=== PATIENT | female | born 1960 | race Caucasian/White ===

== ENCOUNTER 2023-10-22 08:19 | Outpatient (REF) | payer MEDICARE, MEDICAID, SELFPAY ==
--- NOTE | ~2023-10-22 | XR_ITS ---
EXAMINATION: XR FOOT, LEFT CLINICAL INFORMATION: Left foot pain, fracture COMPARISON: Radiographs 10/04/2023 TECHNIQUE: AP, lateral, and oblique views of the left foot. FINDINGS: Mild displacement of the distal 5th metatarsal fracture minimally worsened since the previous study. No definite osseous bridging. No additional abnormality. XR/XR foot LT min 3V IMPRESSION: Mild displacement of the distal 5th metatarsal fracture minimally worsened since 10/04/2023.
== END 2023-10-22 08:20 | disposition home or self-care (01) ==
LOC: HO.HOSX 08:19
PROVIDERS: Visit Provider Physician Assistant
DX: M79.672 Pain in left foot (principal)
CPT/HCPCS: 73630

== ENCOUNTER 2023-10-22 08:47 | Outpatient (AMB) | payer MEDICARE, MEDICAID, SELFPAY ==
--- NOTE | 2023-10-22 08:50 | MHC.OFFVIS ---
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 Patient reports around the end of September she was jumping around with her niece when she rolled her ankle and heard a pop. She had pain swelling and bruising, she presented to [facility] where she was placed in a walking boot. States that she discontinued use of boot due to discomfort. Currently with walking she will sharp pain at the lateral aspect of foot near her small toe. Allergies cashew nut Allergy (Verified 10/22/23 09:05) lips swelling, difficulty breathing Medication List - Last Reconciled 10/22/23 by Shannon Cleveland PA-C No Known Home Meds HPI HPI MAINTENANCE REPRESENTATIVE-Left foot sprain/pain: Details: 63-year-old female who presents to the office today for an evaluation of left foot injury. She reports she was jumping around with her niece when she rolled her ankle and heard a pop, 10/04/23. She was seen at [facility] where x-rays were performed and she was placed in a walking boot. She has discontinued using her boot due to discomfort. She currently states she has sharp pain at the lateral aspect of her foot near her small toe. She has a history of right foot fracture in 2019. [facility] Social History (Updated 10/22/23 @ 09:06 by Rayne Albarran Cha) Patient Tobacco Use Status: Former Tobacco user Current occupational status: retired Review of Systems Const All systems reviewed & are unremarkable except as noted in HPI and below Physical Exam Vital Signs: BMI result Body Mass Index 17.4 Const General: cooperative, healthy appearing, comfortable, no acute distress, well developed and alert Orientation/consciousness: patient oriented x3 HEENT Head: Yes normal to inspection, Yes normocephalic and Yes atraumatic Eyes General: appearance normal, both eyes and all related structures Resp Effort & Inspection: normal respiratory effort and able to speak in complete sentences Cardio Rate: regular rate Peripheral pulses: Peripheral pulses 2+ throughout GI Palpation (GI): Soft to palpation Skin Lesions: no lesions Rashes: no rashes Neuro General: patient oriented x3 Extrem Other: Left foot: Skin intact.? There is some bruising of the lateral edge of the left foot.? There is tenderness at the base of the 5th metatarsal. Sensation intact.? EHL intact.? No pain along the mediolateral malleolus.? Neurovascularly intact.?? Office Procedures Fracture Care Fracture Billing Code: Fracture Billing Code Results Reviewed Results Reviewed: Xrays were obtained in the office today and personally reviewed by me of the left foot show 5th metatarsal fracture Assessment & Plan Assessment & Plan (1) Fracture of 5th metatarsal: Code(s): S92.353A - Displaced fracture of fifth metatarsal bone, unspecified foot, initial encounter for closed fracture Category: Medical Plan She was given a postop shoe which she will wear weight bearing as tolerated. She will use caution on uneven surfaces. Over the next 6 weeks I would expect she may have fluctuation in pain and swelling with activities and she can try wearing regular street shoe when her symptoms subside. I would like to see her back in 6-8 weeks, sooner if needed. Orders: Orders XR foot LT min 3V 10/22/23 M79.672 - Pain in left foot Patient Instructions: Scribed for Shannon Cleveland PA-C, by Segun Swenson medical anthropology director, on 10/22/2023 at 9:00 AM EST.? I, Shannon Cleveland PA-C, have personally reviewed and agree with the information entered by the scribe. Coding Level of Care Code New Pt Level 3 (53492) Diagnoses Fracture of 5th metatarsal S92.353A CPT Codes Fracture Care - Fracture Billing Code: Fracture Billing Code ([id number])
[2023-10-22 09:05] VITALS: BMI 17.4
== END 2023-10-22 09:55 | disposition home or self-care (01) ==
PROVIDERS: PCP Internal Medicine; Visit Provider Physician Assistant
DX: S92.353A Displaced fracture of fifth metatarsal bone, unspecified foot, initial encounter for closed fracture (principal)
CPT/HCPCS: 99203

== ENCOUNTER 2023-12-10 08:32 | Outpatient (REF) | payer MEDICARE, MEDICAID, SELFPAY ==
--- NOTE | ~2023-12-10 | XR_ITS ---
EXAMINATION: XR FOOT, LEFT CLINICAL INFORMATION: Pain. COMPARISON: 10/22/2023. TECHNIQUE: AP, lateral, and oblique views of the left foot. FINDINGS: Redemonstration of mildly displaced fracture along the [id number] shaft of the fifth metatarsal with some interval bridging callus formation. Diffuse demineralization. XR/XR foot LT min 3V IMPRESSION: Redemonstration of mildly displaced fracture along the mid to distal shaft of the fifth metatarsal with some interval bridging callus formation.
== END 2023-12-10 08:33 | disposition home or self-care (01) ==
LOC: HO.HOSX 08:32
PROVIDERS: Visit Provider Physician Assistant
DX: M79.672 Pain in left foot (principal); S92.353A Displaced fracture of fifth metatarsal bone, unspecified foot, initial encounter for closed fracture
CPT/HCPCS: 73630; 99212

== ENCOUNTER 2023-12-10 09:38 | Outpatient (AMB) | payer MEDICARE, MEDICAID, SELFPAY ==
--- NOTE | 2023-12-10 09:55 | MHC.OFFVIS ---
Vital Signs 12/10/23 09:57 Height 5 ft 1 in Weight 92 lb BMI 17.4 Intake Visit Reasons: OV-F/U left 5th matararsal fx w xrays Intake Note: Dionne a 63 year old female who presents today for a follow up of left 5th metatarsal fx. Patient reports ongoing pain at the base of her toes at the top of her foot as well as intermittent swelling. Allergies cashew nut Allergy (Verified 12/10/23 10:00) lips swelling, difficulty breathing Medication List - Last Reconciled 12/10/23 by Shannon Cleveland PA-C No Known Home Meds HPI HPI OV-F/U left 5th matararsal fx w xrays: Details: Dionne is a 63-year-old female who presents today for a follow-up of left 5th metatarsal fracture. She describes sporadic swelling and persistent pain around the base of her toes near the top of her foot. She reports she has pain while wearing boot. She states that she feels discomfort while walking. [facility] Social History Patient Tobacco Use Status: Former Tobacco user Current occupational status: retired Review of Systems Const All systems reviewed & are unremarkable except as noted in HPI and below Physical Exam Vital Signs: BMI result Body Mass Index 17.4 Const General: cooperative, healthy appearing, comfortable and no acute distress Orientation/consciousness: patient oriented x3 HEENT Head: Yes normal to inspection, Yes normocephalic and Yes atraumatic Eyes General: appearance normal, both eyes and all related structures Neck Neck: Yes normal visual inspection and Yes no JVD Chest Chest palpation & inspection: normal inspection of the chest Resp Effort & Inspection: normal respiratory effort Auscultation: clear to auscultation bilaterally, crackles (no), rales (no), rhonchi (no) and wheezes (no) Cardio Jugular venous distension: no JVD Rate: regular rate Rhythm: regular rhythm Heart sounds: S1 normal heart sound present, S2 normal heart sound present, Murmur heart sound present (no) and Rub heart sound present (no) Peripheral pulses: Peripheral pulses 2+ throughout GI Palpation (GI): Soft to palpation Skin Lesions: no lesions Rashes: no rashes Neuro General: patient oriented x3 Extrem Other: Left foot: Skin intact.?No bruising of the lateral edge of the left foot.? There is mild tenderness at the base of the 5th metatarsal. Sensation intact.? EHL intact.? No pain along the mediolateral malleolus.? Neurovascularly intact.?? General: Yes normal to inspection, Yes no pedal edema and Yes no calf tenderness Psych Appearance: grossly normal Mental Status: mental status grossly normal Speech and movement: Normal speech and movement present Results Reviewed Results Reviewed: Xrays were obtained in the office today and personally reviewed by me of the left foot show 5th metatarsal fracture with interval healing Assessment & Plan Assessment & Plan (1) Fracture of 5th metatarsal: Code(s): S92.353A - Displaced fracture of fifth metatarsal bone, unspecified foot, initial encounter for closed fracture Category: Medical Qualifiers: Encounter type: subsequent encounter Fracture type: closed Fracture healing: with routine healing Plan I discussed the importance of comfortable shoe wear, preferably something with a stiff sole and walking on even surfaces to prevent flare ups. She feels as though her sandals are the most comfortable for for her, given the amount of swelling she is experiencing, it is easier for her to slip on and off. I did explain that she should use anti-inflammatories and icing intermittently to help with her swelling and that over the next 6 weeks. I would expect her to have further healing and less discomfort with ambulation. If there is any questions or concerns, she can contact our office, otherwise follow up as needed. Orders: Orders XR foot LT min 3V Today M79.672 - Pain in left foot Patient Instructions: Scribed for Shannon Cleveland PA-C, by arielle Torres scribe, on 12/10/2023 at 9:45 AM EST. IShannon PA-C, have personally reviewed and agree with the information entered by the scribe. Coding Level of Care Code Global (03159) Diagnoses Fracture of 5th metatarsal S92.353A Encounter type: subsequent encounter Fracture type: closed Fracture healing: with routine healing
[2023-12-10 09:57] VITALS: BMI 17.4
== END 2023-12-10 10:34 | disposition home or self-care (01) ==
PROVIDERS: PCP Internal Medicine; Visit Provider Physician Assistant
DX: S92.352A Displaced fracture of fifth metatarsal bone, left foot, initial encounter for closed fracture (principal)
CPT/HCPCS: 99213